=== PATIENT | male | born 1970 | race African-American/Black ===

== ENCOUNTER 2019-01-22 11:12 | Outpatient (REF) | payer SELFPAY ==
[2019-01-22 21:53] LABS: Anion Gap 10.9 mmol/L (3-11); BUN 19 mg/dL (7-18); CO2 27.1 mmol/L (21.0-32.0); CREATININE 1.09 mg/dL (0.70-1.30); Chloride 101 mmol/L (98-107); Glucose 103 mg/dL (70-100); Potassium 4.2 mmol/L (3.5-5.1); Sodium 139 mmol/L (136-145)
== END 2019-01-22 11:32 ==
LOC: NCHCN 11:12
PROVIDERS: PCP Internal Medicine; Visit Provider Registered Nurse
DX: I10 Essential (primary) hypertension (principal)
CPT/HCPCS: 80048